=== PATIENT | female | born 1990 | race Caucasian/White ===

== ENCOUNTER 2016-06-22 17:30 | Observation (INO) | payer OTHER ==
[~2016-06-22] VITALS: Ht 152.4 cm; Wt 53.7 kg
[2016-06-22 17:33] VITALS: BP 143/80; PULSE 58; RESP 16; O2SAT 96
[2016-06-22] MEDS ORDERED: 0.9% Sodium Chloride 1,000 ML IV ONE (17:59)
[2016-06-22] MEDS ORDERED: Dexamethasone 10 mg/mL Inj IVPUSH ONE (18:00)
[2016-06-22] MEDS ORDERED: MetoCLOpramide 5 mg/mL 2 mL Inj IVPUSH ONE (18:00)
[2016-06-22] MEDS ORDERED: Magnesium Sulf 2 Gm/50mL Water 2 GM in IV Premix 1 EACH IV ONE (18:00)
--- NOTE | 2016-06-22 18:04 | ED.REPORT ---
HPI-Headache Date of Service June 22, 2016 ED Provider: Hong Austin PA-C Sandhya is a 25-year-old female with a chief complaint of headache. She reports a headache that began insidiously 2 weeks ago. For the first week Excedrin Migraine was quite helpful, but no longer is. Describes her headache as a band around her eyes progressing the back of her head, down her neck and into her jaw. Complains of jaw pain aggravated by eating. Describes her pain is constant. Subjective fever this morning. Associated with nausea, vomiting, photophobia, blurred vision. Seen at urgent care yesterday and provided medications that were initially quite helpful. However she awoke from sleep at 0300 this morning with return of her severe headache. She had been instructed to present to the emergency department should her headache return. She denies history of headaches or other medical conditions. Nursing Notes Stated Complaint: HEADACHE Chief Complaint: Headache Nursing Notes Reviewed: Yes Allergies: Coded Allergies: No Known Allergies (Unverified , 06/22/16) Scheduled PRN Ibuprofen (Ibuprofen) 200 Mg Capsule 200 MG PO DIRECTED PRN PRN Headache General Time Seen by MD: 17:46 Chief Complaint Headache Hx Obtained From: Patient Arrived By: Walk-in Sudden in Onset?: No Onset Occurred: More than a week ago... (2 weeks) Symptom Duration: Since onset Location: : Generalized Quality: Painful Radiation: : Neck, posterior Severity: Current: Severe Severity: Maximum: Severe Recent Healthcare: Recent doctor visit Similar Sx Previous: No Past Medical History Past Medical History Denies. No history of headache Past Surgical History none reported Smoking History Unknown if Ever Smoker Ambulatory Status Independent Review of Systems General: Denies fever, chills, malaise. HEENT: Admits headache. Respiratory: Denies dyspnea, cough, shortness of breath, wheezing. Gastrointestinal: Denies vomiting, diarrhea, abdominal pain. Otherwise as noted in HPI. Complete sys rev & neg: except as marked. Physical Exam General: Tired appearing, well developed, well nourished, mild distress. Tearful. Head: Mild tenderness over bilateral temples. Pulses present 2+. Atraumatic, normocephalic. No mastoid tenderness. Eyes: No scleral icterus or injection. No discharge. PERRL. Vision grossly intact. Ears: Pinna and tragus nontender with manipulation. External auditory canal patent, atraumatic and without discharge. Tympanic membrane goodson, shiny and translucent without fluid, bulging, retraction or perforation. Hearing grossly intact. Nose: Symmetrical, nares patent without discharge. No frontal or maxillary sinus tenderness. Mouth/pharynx: normal dentition, mucus membranes moist. Tonsils 2+ and symmetrical, uvula midline. Pharynx noninjected, no cobblestoning or discharge. Voice clear. Neck: No tenderness or lymphadenopathy. Trachea midline. Excellent range of motion. Respiratory: Regular rate and rhythm. Breath sounds present, clear to auscultation and equal bilaterally. No respiratory distress. No increased work of breathing, speaks in complete sentences. Cardiovascular: Regular rate and rhythm, without murmur, gallop or rub. No pedal edema. Gastrointestinal: Abdomen flat and non-tender without guarding or rebound. Bowel sounds normoactive. Skin: Warm and dry. Neurological: Normal gait, heel walk, toe walk, Romberg. Negative pronator drift. Normal finger-nose, heel-beebe, rapid hand. Moving all limbs normally. Cranial nerves: Vision grossly intact, PERRL, EOMI. Facial motion symmetrical, sensation to light touch over forehead, maxilla and mandible present and equal B /L. Voice clear and fluent, no drooling/pooling of saliva, uvula rises midline. Psychological: Alert and oriented x3. Speech appropriate, linear and logical. Behavior appropriate. Initial Vital Signs Vital Signs (First) Date Time Temp Pulse Resp B/P Pulse Ox O2 Delivery O2 Flow Rate FiO2 06/22/16 17:33 37.1 58 16 143/80 96 Room Air Initial VS: Reviewed, Vital signs abnormal (mildly elevated blood pressure) Interpretation & Diagnostics Interpretation & Diagnostics: CBC is normal, ESR normal at 2. CMP reveals mildly low potassium at 3.3, low creatinine of 0.49 Lab Results Interpretation Result Diagram: 06/22/16 18206/22/16 182 Test 06/22/16 18:25 06/22/16 19:30 06/23/16 00:00 White Blood Count 8.7th/mm3 (3.8-10.1) Red Blood Count 4.18mil/mm3 (3.90-5.20) Hemoglobin 12.7g/dL (12.0-15.6) Hematocrit 37.4% (35.0-46.0) Mean Corpuscular Volume 89.5fL (81-100) Mean Corpuscular Hemoglobin 30.4pg (27.0-35.0) Mean Corpuscular Hemoglobin Concent 34.0% (32.0-37.0) Red Cell Distribution Width 12.5% (12.3-15.4) Platelet Count 243bil/L (150-400) Neutrophils (%) (Auto) 58.8% (40-74) Lymphocytes (%) (Auto) 31.0% (14-46) Monocytes (%) (Auto) 9.6% (4-12) Eosinophils (%) (Auto) 0.2% (0-5) Basophils (%) (Auto) 0.3% (0-3) Erythrocyte Sedimentation Rate 2mm/hr (0-32) Hold Purple Top Tube Received (Received) Hold Blue Top Tube Received (Received) Sodium Level 135mEq/L (134-144) Potassium Level 3.3mEq/L (3.5-5.2) Chloride Level 100mEq/L (97-108) Carbon Dioxide Level 18mmol/L (18-29) Blood Urea Nitrogen 8mg/dL (6-20) Creatinine 0.49mg/dL (0.57-1.00) Estimat Glomerular Filtration Rate 224mL/min (>59) Glucose Level 93mg/dL (60-99) Calcium Level 9.6mg/dL (8.5-10.1) Total Bilirubin 0.4mg/dL (0.0-1.2) Aspartate Amino Transf (AST/SGOT) 15U/L (0-50) Alanine Aminotransferase (ALT/SGPT) 11U/L (0-32) Alkaline Phosphatase 42U/L (25-150) Total Protein 7.1g/dL (6.4-8.4) Albumin 4.6g/dL (3.4-5.0) Hold [place] Top Tube Received (Received) Hold Urine Received (Received) CSF Appearance Clear (CLEAR) CSF Color Colorless (COLORLESS) CSF WBC 0/mm3 (0-5) CSF RBC 0/mm3 CSF Mononuclear WBCs % CSF Polynuclear WBCs % CSF Other Cells CSF Glucose 71mg/dL (45-90) CSF Total Protein 24mg/dL (15-45) CT Head Interpretation PROCEDURE: CT BRAIN WITHOUT CONTRAST ([id number]) INDICATIONS: headache IMPRESSION: No acute intracranial process Interpretation / Wet Read by: Interpret - Radiologist, Interp - [facility] Procedures Lumbar Puncture Text / Dict Note: Clear CSF Opening pressure = 20 Time: 23:38 Procedure Performed by: ED physician Consent / Setup / Site Prep: Informed consent provided, Consent from patient , Hand hygiene observed, Patient right lateral Skin Preparation Agent: Betadine Local Anesthesia: Lidocaine 1% Procedural Sedation/Analgesia: Analgesia: Fentanyl LP Needle Gauge: 22 Inserted Needle at: L3 L4 Post-Procedure / Complications: No complications, Tolerated procedure well, Patient stable Re-Eval/Medical Decision Re-Evaluation/Progress : Time of Eval: 20:21 Re-Evaluation/Progress Note: Patient reports that her pain which had initially been 9 out of 10 was reduced to 3 out of 10 with treatment. Unfortunately it has not risen again to approximate 5 or 6 out of 10. She locates her pain at her temples and states is not yet a band encircling her head. Consultation #1: Referral / Consult Name: Danilo Morgan MD Consulted With: Neurology Call Returned at: 00:06 [employer] Manager: Will see patient, Agrees with eval, Agrees with plan Note: Dr. Morgan requests the pt be admitted. Consultation #2: Referral / Consult Name: Jonh Bridges MD Consulted With: Hospitalist Call Returned at: 00:31 [employer] Manager: Will see patient, Agrees with eval, Agrees with plan, Accepts admit Counseled Regarding: Diagnosis, Lab results, Need for admission Discharge & Departure Shift Change Sign-Out Patient Care Transferred: Yes (Dr. El) Discussed Complaint(s): Yes Laboratory Evaluation: Lab evaluation discussed Imaging Studies: Imaging discussed Impression: Primary Impression: Intractable headache Headache type: unspecified Headache chronicity pattern: unspecified pattern Qualified Code: R51 - Headache Disposition: ADMITTED TO HOSPITAL Discharge Condition All VS Reviewed: Yes Referrals: [facility] Carlynibe Attestation Portions of this note were transcribed by Tamie Oden. I, , personally performed the history, physical exam and medical decision-making;I reviewed and confirmed the accuracy of the information in the transcribed note. Signed by Jamie Oakes. 06/23/16 0111 copies to: [facility] Hong Austin PA-C June 22, 2016 18:03 Tamie Oden June 22, 2016 23:44 Xu El MD June 23, 2016 03:38
[2016-06-22 18:59] LABS: BASOPHILS % (AUTO) 0.3 % (0-3); EOSINOPHILS % (AUTO) 0.2 % (0-5); MONOCYTES % (AUTO) 9.6 % (4-12); Mean Corpuscular Hemoglobin 30.4 pg (27.0-35.0); Mean Corpuscular Volume 89.5 fL (81-100); NEUTROPHILS % (AUTO) 58.8 % (40-74); Platelet Count 243 bil/L (150-400)
[2016-06-22 20:07] VITALS: BP 138/76; PULSE 64; RESP 16; O2SAT 98
--- NOTE | 2016-06-22 20:30 | DRSVH ---
PROCEDURE: CT BRAIN WITHOUT CONTRAST ([id number]) INDICATIONS: headache TECHNIQUE: Noncontrast 4.5 mm thick angled axial sections acquired from the foramen magnum to the vertex, with c oronal reformats. COMPARISON: None. FINDINGS: Image quality: Excellent. CSF spaces: Basal cisterns are patent. No extra-axial fluid collections. Ventricles are normal in size and shape. Brain: No midline shift. No intracranial masses or hemorrhage. Bran-white matter interface is norm al. Skull and face: Calvarium and visualized facial bones are intact, without suspicious lesions. Sinuses: Visualized sinuses and mastoids are clear. IMPRESSION: No acute intracranial process Dictated by: Dipak Patel M.D. on 06/22/2016 at 20:27 Approved by: Dipak Patel M.D. on 06/22/2016 at 20:28
[2016-06-22] MEDS ORDERED: fentaNYL-PF 50 mCg/mL 2 mL Inj IVPUSH ONE (23:20)
[2016-06-22] MEDS ORDERED: Ondansetron 2 mg/mL 2 mL Inj IVPUSH ONE (23:20)
[2016-06-23] VITALS (7 sets, daily range): BP systolic 101–151; BP diastolic 47–84; PULSE 57–80; RESP 16–18; O2SAT 96–99
[2016-06-23] MEDS ORDERED: ProchlorPERazine 5 mg/mL 2 mL Inj IVPUSH ONE ×2 (00:05→22:50)
[2016-06-23 00:43] LABS: APPEARANCE,CSF CLEAR (CLEAR); COLOR,CSF COLORLESS (COLORLESS); WHITE BLOOD CELL,CSF 0 /mm3 (0-5)
[2016-06-23] MEDS ORDERED: Polyethylene Glycol (PEG) 17 Gm Powder PO PRN (00:50)
[2016-06-23] MEDS ORDERED: Alum-Mag Hydrox-Simeth 30 mL Suspension PO PRN (00:50)
[2016-06-23] MEDS ORDERED: Ondansetron 2 mg/mL 2 mL Inj IVPUSH PRN (00:50)
--- NOTE | 2016-06-23 00:58 | PCM.HPMED ---
Subjective Date of Service June 23, 2016 Primary Provider: Admitting Physician: Jonh Bridges MD Primary Care Physician: Alyssa Attending Physician: Jonh Bridges MD Chief Complaint: Headache for 2 weeks History of Present Illness: Sandhya Goff is an otherwise healthy 25 year old woman who presents with a 2 week history of gradually worsening retro-orbital and circumferential headache. She is unable to identify any inciting events such as changes in stress, diet, or activity. She denies any auditory or visual phenomena, pain with ROM of her neck, fevers/chills, alterations in sensation or speech, sick contacts, institutionalization, or history of similar events. She endorses nausea, photophobia, and fatigue. In the ED a lumbar puncture was performed the results of which were largely benign. The patient respond well but transiently to Benadryl, compazine, and decadron with Benadryl being the most efficacious. Dr. Morgan from neurology was consulted and agreed to see the patient tomorrow. Review of Systems: Comprehensive ROS negative except as listed above in the HPI Allergies Coded Allergies: No Known Allergies (Unverified , 06/22/16) Home Medications None PMH none Surgical History tonsillectomy Family History Mother with HTN and "Heart issues" Social History Smoking Status: Unknown if Ever Smoker Exam Vital Signs Vital Sign - Last Date Time Temp Pulse Resp B/P Pulse Ox O2 Delivery O2 Flow Rate FiO2 06/22/16 20:07 37.0 64 16 138/76 98 Room Air Intake and Output 06/22/16 06/22/16 06/23/16 Cumulative From/Thru 15:00 23:00 07:00 06/22/16 17:33 - 06/22/16 18:52 Intake Total 1000 ml 1000 ml Balance 1000 ml 1000 ml Intake IV Total 1000 ml 1000 ml Exam Gen: A/O x3 pleasant cooperative young woman in mild acute distress Neck: Supple, Full ROM, no JVD, no nuchal rigidity HEENT: BL vicky-orbital dark circles, PERRL, EOMI, no scleral icterus, no conjunctival pallor CV: RRR, no murmurs rubs or gallops Resp: Lungs CTA BL, no wheezing rales or rhonchi Abd: Soft, non tender, no organomegaly Extr: No clubbing cyanosis or edema Neuro: CN 2-12 intact, no focal neurologic deficit. Strength and sensation equal and intact BL Psych: Fatigued but generally pleasant mood and affect. Lab and Diagnostics Labs Item Value Date Time Red Blood Count 4.18 mil/mm3 06/22/16 182 Neutrophils (%) (Auto) 58.8 % 06/22/16 182 Lymphocytes (%) (Auto) 31.0 % 06/22/16 182 Monocytes (%) (Auto) 9.6 % 06/22/161824 Eosinophils (%) (Auto) 0.2 % 06/22/16 182 Basophils (%) (Auto) 0.3 % 06/22/161824 Erythrocyte Sedimentation Rate 2 mm/hr 06/22/161824 Estimat Glomerular Filtration Rate 224 mL/min 06/22/161824 Calcium Level 9.6 mg/dL 06/22/161824 Total Bilirubin 0.4 mg/dL 06/22/161824 Aspartate Amino Transf (AST/SGOT) 15 U/L 06/22/16 182 Alanine Aminotransferase (ALT/SGPT) 11 U/L 06/22/161824 Alkaline Phosphatase 42 U/L 06/22/16 182 Total Protein 7.1 g/dL 06/22/16 1825 Albumin 4.6 g/dL 06/22/161824 CSF Appearance Clear 06/23/16 0000 CSF Color Colorless 06/23/16 0000 CSF WBC 0 /mm3 06/23/16 0000 CSF RBC 0 /mm3 06/23/16 0000 CSF Mononuclear WBCs % 06/23/16 0000 CSF Glucose 71 mg/dL 06/23/16 0000 CSF Total Protein 24 mg/dL 06/23/16 0000 Result Diagram: 06/22/16 1825 06/22/161824 X-Rays, CTs and MRIs CT BRAIN WITHOUT CONTRAST IMPRESSION: No acute intracranial process Dictated by: Dipak Patel M.D. on 06/22/2016 at 20:27 Approved by: Dipak Patel M.D. on 06/22/2016 at 20:28 . Assessment & Plan Sandhya Goff is a 25 year otherwise healthy woman who presents with an insidious onset 2 week history of headache localized retro-orbitally with radiation circumferentially around the head and extending down the posterior lateral neck along the line of the levator scapulae. Spinal tap, imaging, and laboratory evaluation are all benign. The patient's case was discussed with Dr. Morgan from Neurology who has agreed to see the patient tomorrow and has requested admission tonight to facilitate that meeting. 1. Prolonged headache, present on admission, acute. Active -Circumferential nature of headache suggestive of tension type, severity and duration with accompanying photophobia more suggestive of migraine. there is retro-orbital pain but it is BL, thus cluster GERARDO less likely -Headache for 2 weeks, initially responsive to excedrine Migraine but for the past 3 days this has not worked -CSF evaluation, imaging, and lab evaluation benign -Headache responsive to Benadryl, compazine, and Decadron; with Benadryl being the most effective agent -Continue Benadryl 25 mg IV Q4 PRN for headache control and sleep aid -Patient will be evaluated by Dr. Morgan tomorrow -Keep overnight interruptions to minimum to allow patient to rest until being seen tomorrow -Patient low risk for DVT, thus SCDs were not utilized in order to facilitate sleep Code Status: FULL CODE Disposition: Observation, patient will likely be able to DC home with no needs tomorrow following neurology evaluation Pain Evaluation: Adequate Pain Control VTE Prophylaxis: Other (Low risk and likely short stay, SCDs would impair sleep ) Resuscitation Status: CPR: Attempt Resuscitation Attending Statement The patient was seen and examined together with Dr. Huitron on 06/23 and I agree with the history, exam and plan as outlined in the note above. Jasiel Huitron DO June 23, 2016 00:58 Jonh Bridges MD June 23, 2016 03:09
--- NOTE | 2016-06-23 01:20 | NUR ---
Admit ER report taken from Odilia BUSTOS arrived floor via [facility] ind , dx intractable GERARDO currently w/out pain, admission complete plan is neuro consult today otherwise no medical hx other than tonsil and 2 children
[2016-06-23] MEDS ORDERED: IBUP200C PO (01:34)
[2016-06-23] MEDS ORDERED: KCl 40 mEq/D5W 500 mL 40 MEQ in IV Premix 1 EACH IV ONE (07:35)
--- NOTE | 2016-06-23 08:23 | NUR ---
Social Work: Screening Data: Pt is a 25 y/o female admitted for intractable headache. Pt's PCP is not listed. Pt's insurance is [facility]. EMR reviewed, readmit score not listed. No d/c planning needs anticipated at this time. PROFESSOR OF SPORT MANAGEMENT will continue to follow if needs arise. Assessment: Pt who is independent at baseline. Plan: Pt will d/c home via POV when medically stable. No d/c planning needs anticipated at this time. PROFESSOR OF SPORT MANAGEMENT will continue to follow if needs arise. WAYNE Vazquez
--- NOTE | 2016-06-23 13:50 | DRSVH ---
PROCEDURE: MRI STROKE PROTOCOL ([id number]) Pre- and post-contrast brain MRI, non-contrast brain MR angiogram, pre- and postcontrast neck MR freya ogram INDICATIONS: New onset headache neurologic symptoms TECHNIQUE: Brain: Noncontrast axial T1 spin echo, axial T2 fast spin echo, sagittal and axial FLAIR, coronal T2 fast spin echo, axial gradient echo, axial diffusion and ADC through the brain. After the administr ation of contrast, axial 3D VIBE of the cranial vasculature and brain. Brain MRA: Non-contrast 3-D time of flight MR angiogram, with multiple ulhkizq-melmzaygw-qohzuvuvvj (MIP) reformats performed. Neck MRA: Axial and sagittal TruFISP through the neck. Coronal dynamic MR angiogram during administ ration of contrast in the arterial and venous phases, with 3-dimenstional anvxpfc-jjpfcvtyf-jmndnmvep n (MIP) reformats constructed from subtraction images. COMPARISON: [facility], CT, CT BRAIN WO CON, 06/22/2016, 20:01. FINDINGS: Image quality: Excellent. BRAIN: CSF spaces: Ventricles are normal in size and shape. Basal cisterns are patent. No extra-axial flu id collections. Brain: No intracranial bleeds or mass effects. Bran-white matter interface is normal. Diffusion we ighted images show no acute ischemic insults. Brainstem appears normal. Visualized portions of the c ervical cord demonstrate a low flow signal intensity focus within the central substance of the cord e xtending from the level of the C4-C5 disc space level inferiorly below the imaged plane. Normal intra vascular flow voids are present. No abnormal intracranial enhancement. Skull and face: Calvarial marrow signal is normal. Orbits appear normal. Sinuses: Sinuses and mastoids are clear. BRAIN MR ANGIOGRAM: Anterior circulation: Intracranial internal carotid arteries are normal in size and enhancement. Th e flow within the paired anterior cerebral arteries is normal and symmetric. The flow within the mid dle cerebral arteries is normal and symmetric. The anterior communicating artery is seen. No stenos es, occlusions, or aneurysms. Posterior circulation: The visualized portions of the vertebral arteries demonstrate normal caliber, and join to form a normal appearing basilar artery. origin of the right posterior cerebral ar teries. The flow within the posterior cerebral arteries is normal and symmetric. No stenoses, occlus ions, or aneurysms. NECK MR ANGIOGRAM: Carotids: Great vessels demonstrate a conventional anatomy as they arise from the aortic arch. The origins of the common carotid arteries appear patent. The calibers and courses of both common caroti d arteries are normal. The bifurcation regions appear normal bilaterally. The internal carotid claudine tobi demonstrate normal course and caliber. Posterior circulation: The origins of the vertebral arteries appear patent. More superior portions of both vertebral arteries demonstrate normal course and caliber, and join to form a normal appearing basilar artery. Miscellaneous: Subclavian arteries appear patent. Precontrast T2 sequences through the neck demonstr ate any high T2 intensity focus within the central substance of the cord extending from the C4-C5 dis c space level inferiorly through the C7-T1 disc space level, measuring roughly 9 mm transverse by 6 m m anteroposterior by 42 mm craniocaudal. IMPRESSION: BRAIN MRI: 1. No acute process. No recent infarct. BRAIN MR ANGIOGRAM: Negative cerebral MR angiography. NECK MR ANGIOGRAM: 1. No internal carotid artery stenosis bilaterally. 2. 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 Further assessment utilizing cervica l spine MRI with and without intravenous contrast is recommended for further assessment, and to exclu de less likely, more aggressive etiologies.. The estimate of stenosis included in the report of the imaging study was calculated using the NASCET method Dictated by: Osmar Talamantes M.D. on 06/23/2016 at 13:42 Approved by: Osmar Talamantes M.D. on 06/23/2016 at 13:49
[2016-06-23] MEDS ORDERED: Butalbital-Acet-Caffeine Tablet PO PRN (16:55)
--- NOTE | 2016-06-23 17:37 | PCM.PROC ---
Procedure Note Date of Service: June 23, 2016 Procedure: Procedure: Osteopathic Manipulative Treatment Subjective: Patient is a 25-year-old female who complains of a three-day headache and right leg pain with numbness and tingling. The patient states that lying down with her knees up helps to improve the lower extremity pain and numbness and tingling. The patient states that Benadryl did seem to help her headache however her headache has returned and is now an 8/10 pain. Risks and benefits of OMT were explained to the patient and verbal consent obtained. Osteopathic Structural Exam: Head: SBS: Right sidebending with an underlying right torsion, OAFSrRl Cervicals: C6-C7 FRSr, C3-5 FRSl Thoracics: T1-4NRrSl, T12 paraspinal hypertonicity on the right Lumbars: L1 to L5 paraspinal hypertonicity on the right Abdomen: Right-sided diaphragm restriction Ribs: Inhaled first rib on the right Pelvis: Anterior right innominate Sacrum: Right SI joint compression Upper extremities: Right clavicle restriction, right let us start Cipro tonicity , right trapezius hypertonicity Lower extremities: Psoas hypertonicity on the right with a psoas trigger point Patient responded well to treatment. Patient stated that her lower extremity pain has subsided and she was no longer having numbness and tingling in the right lower extremity. Patient stated that she still had a headache but it had decreased to about a 5-6/10. The patient's headache is secondary to migraine which is currently being worked up in the hospital and her right lower extremity pain was secondary to psoas spasm as the patient has been chronically in the position secondary to headache pain for the last 3 days. Osteopathic treatment modalities used: Myofascial release, Muscle Energy, Cranial, HVLA, BLT, and soft tissue technique Mayuri Stephens DO June 23, 2016 17:37
[2016-06-23] MEDS: Ketorolac 15 mg/mL Inj IVPUSH PRN ×2 (17:52→23:50)
--- NOTE | 2016-06-23 17:58 | NUR ---
headache patient has been c/o headache throughout day. rating anywhere from a 3-8/10. GERARDO became worse this afternoon with associated low back pain with tingling that radiates to right hip and leg. Dr Stephens notified and she came and assessed patient. Toradol IV was given at 1750hrs. Will reassess for effectiveness. continue to monitor.
[2016-06-23] MEDS ORDERED: Magnesium Sulf 2 Gm/50mL Water 2 GM in IV Premix 1 EACH IV ONE (20:10)
--- NOTE | 2016-06-23 20:41 | NUR ---
MRI off floor to MRI w/contrast Addendum: 06/23/16 at 2136 by YANA HERNANDEZ RN Returned s/p MRI
[2016-06-23] MEDS ORDERED: Valproate Sodium Inj 1,000 MG in Dextrose 5% 100 ML IV ONE (20:45)
--- NOTE | 2016-06-23 22:15 | DRSVH ---
PROCEDURE: MRI CERVICAL SPINE WITH AND WITHOUT CONTRAST ([id number]) INDICATIONS: EVALUATE SYRINX SEEN ON PRIOR MRI TECHNIQUE: Noncontrast sagittal T1 spin echo and T2 fast spin echo, sagittal STIR, foraminal oblique sagittal T2 fast spin echo, axial gradient echo or T2 fast spin echo through the cervical spine. After the admi nistration of contrast, axial and sagittal T1 spin echo with fat saturation through the cervical spin e. COMPARISON: [facility], CT, CT BRAIN WO CON, 06/22/2016, 20:01. [facility], MR, MR STROKE PROTOCOL, 06/23/2016, 12:50. FINDINGS: Image quality: Excellent. Alignment and curvature: There is normal bony alignment. Marrow: Marrow is normal in overall signal, without suspicious enhancement. Spinal cord: Visualized spinal cord has normal size and signal except for the previously identified central fluid collection presumed to represent syrinx within the mid to lower cervical spine from erica roximately C4-5 through C6-7 disc levels. This structure was seen initially during brain imaging ear lier today, and has a maximal craniocaudad length of approximately 4.2-4.3 cm with maximal AP and tra nsverse dimensions of approximately 6 x 9-10 mm. This is centrally located within the cord, and appe ars bilobed with a smaller upper segment and a longer immediately contiguous lower segment tapering a t the upper and lower margins. This produces slight fusiform enlargement of the cord through that ar ea, only by approximately 2 mm in each axial dimension at the most. 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 No cerebellar tonsillar herniation. No abnormal intramedullary enhancement. Paraspinous soft tissues: No paravertebral masses or suspicious enhancement. IMPRESSION: Central syrinx over approximately a 4.3 cm in maximal craniocaudad dimension is present extending from the C4-5 disc level through the C6-7 disc level of the middle and lower thirds of the cervical cord. No associated contrast enhancement is present at the margins of this lesion, exactly centrally positioned, without evidence of prior trauma to the corresponding levels of the cervical sp ine. This is most likely a benign syrinx, but occasionally low grade cystic glioma or other cystic neoplas m of the central cord could produce such an appearance. Therefore followup would appear necessary an d neurosurgical consultation likely is also warranted for further assessment and to assist in establi shing sequence and frequency of followup MR scanning. No additional focal lesion along the cervical or visualized upper thoracic cord is seen. 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 Depending on the clinica l status further thoracic spine and lumbosacral spine MR imaging may be warranted in this circumstanc e. Dictated by: Rsusell Cotton M.D. on 06/23/2016 at 22:03 Approved by: Russell Cotton M.D. on 06/23/2016 at 22:13
--- NOTE | 2016-06-23 23:28 | NUR ---
GERARDO s/p MRI GERARDO worsening even after Cresencio cintron MD obtained order for GERARDO cocktail
[2016-06-24 06:05] VITALS: BP 114/49; PULSE 73; RESP 17; O2SAT 97
[2016-06-24] MEDS: Ketorolac 15 mg/mL Inj IVPUSH PRN ×2 (06:10→12:55)
--- NOTE | 2016-06-24 11:05 | DRSVH ---
PROCEDURE: MRI LUMBAR SPINE WITH AND WITHOUT CONTRAST ([id number]) INDICATIONS: Recommended followup,cervical syrinx TECHNIQUE: Noncontrast sagittal T1 spin echo and T2 fast spin echo, sagittal STIR, axial T1 and T2 fast spin ech o through the lumbar spine. In cases with scoliosis, additional coronal T2 fast spin echo may be per formed. After the administration of contrast, sagittal and axial T1 spin echo with fat saturation th rough the lumbar spine. COMPARISON: None. FINDINGS: Image quality: Diagnostic Spinal Cord: The imaged portions of the spinal cord are normal in size and signal. The conus medulla ris is normal in position. No syrinx of the imaged portion of the distal cord is evident. The conus medullaris terminates at the lower end of T12. Paraspinous Soft Tissues: No paravertebral masses. Image soft tissues of the abdomen and pelvis are grossly unremarkable; however, not adequately evaluated on this exam. The abdominal aorta is normal in course and caliber. Incidental note is made of a T2 hyperintense structure involving the posteri or aspect of the upper to mid left kidney measuring 1.4 cm in diameter (image 34, series 5) which sandy s not demonstrate significant enhancement and may represent a small cyst. However, there is a flow-v oid identified extending very close to the cortical surface within this region (image 35, series 5), which could represent a vascular anomaly. This is not adequately characterized on this study. Bones: The vertebral body heights and marrow signal are within normal limits. There is no acute frac ture or dislocation. Lower thoracic levels: No significant degenerative changes of the included lower thoracic levels are present. There is no central canal or neural foraminal narrowing at these levels. L1-L2: There is no significant disc bulge or facet arthropathy. There is no central canal or neural foraminal stenosis. L2-L3: There is no significant disc bulge or facet arthropathy. There is no central canal or neural foraminal stenosis. L3-L4: There is no significant disc bulge or facet arthropathy. There is no central canal or neural foraminal stenosis. L4-L5: There is no significant disc bulge or facet arthropathy. There is no central canal or neural foraminal stenosis. L5-S1: There is no significant disc bulge or facet arthropathy. There is no central canal or neural foraminal stenosis. IMPRESSION: 1. Unremarkable lumbar spine. No significant degenerative changes are evident. The imaged portions of the lower spinal cord are within normal limits. 2. Left renal lesion may represent a cyst, but is not well evaluated. A three-phase (noncontrast, a rterial phase, and delayed imaging) CT or MRI of the abdomen is recommended for further evaluation. Dictated by: Russ Juarez M.D. on 06/24/2016 at 9:55 Approved by: Russ Juarez M.D. on 06/24/2016 at 10:03
--- NOTE | 2016-06-24 11:13 | DRSVH ---
PROCEDURE: MRI THORACIC SPINE WITH AND WITHOUT CONTRAST ([id number]) INDICATIONS: Recommended followup,cervical syrinx TECHNIQUE: Noncontrast sagittal T1 spin echo and T2 fast spin echo, sagittal STIR, axial T1 and T2 fast spin ech o through the thoracic spine. After the administration of contrast, axial and sagittal T1 spin echo with fat saturation through the thoracic spine. COMPARISON: None. FINDINGS: Image quality: Excellent. Spinal cord: A prominent lower cervical syrinx is evident, better appreciated on the dedicated MRI of the cervical spine dated 06/23/16. Mild prominence of the central canal is seen within the thoracic c ord without otto syrinx formation. No suspicious enhancement of the spinal cord is evident. No foc al lesions are identified. Bones: The vertebral body heights and intrinsic marrow signal are within normal limits without evide nce to suggest an acute fracture. The alignment is within normal limits. There are no significant d egenerative changes of the thoracic spine. No focal disc bulges, protrusions, or extrusions are iden tified. There is no central canal or neural foraminal narrowing. No suspicious osseous enhancement is evident. Paraspinous soft tissues: No paravertebral masses or abnormal enhancement. IMPRESSION: 1. Mild prominence of the central canal of the thoracic cord without otto thoracic syrinx. No susp icious enhancement of the cord is evident. 2. No disc bulges, protrusions, or extrusions of the thoracic spine are evident. Dictated by: Russ Juarez M.D. on 06/24/2016 at 10:04 Approved by: Russ Juarez M.D. on 06/24/2016 at 10:12
[2016-06-24 14:00] VITALS: BP 118/73; PULSE 69; RESP 20; O2SAT 100
[2016-06-24] MEDS ORDERED: HYDR25CA PO (17:22)
[2016-06-24] MEDS ORDERED: SUMA50TA31 PO (17:22)
[2016-06-24] MEDS ORDERED: ACET325T51 PO (17:22)
--- NOTE | 2016-06-24 17:27 | PCM.DC.MED ---
Discharge Summary Date of Service June 24, 2016 Dates of Hospitalization Date of Hospital Admission June 23, 2016 at 00:49 Date of Discharge: June 24, 2016 Providers: Admitting Physician: Jonh Bridges MD Primary Care Physician: Nopclemente Attending Physician: Jonh Bridges MD Diagnosis at Time of Discharge Diagnosis at Time of Discharge Migraine New finding of a syrinx on MRI Consultations Neurology (Dr. Banks) Procedures XRay, CTs & MRIs CT BRAIN WITHOUT CONTRAST IMPRESSION: No acute intracranial process Dictated by: Dipak Patel M.D. on 06/22/2016 at 20:27 Approved by: Dipak Patel M.D. on 06/22/2016 at 20:28 . PROCEDURE: MRI STROKE PROTOCOL ([id number]) Pre- and post-contrast brain MRI, non-contrast brain MR angiogram, pre- and postcontrast neck MR angiogram INDICATIONS: New onset headache neurologic symptoms TECHNIQUE: Brain: Noncontrast axial T1 spin echo, axial T2 fast spin echo, sagittal and axial FLAIR, coronal T2 fast spin echo, axial gradient echo, axial diffusion and ADC through the brain. After the administration of contrast, axial 3D VIBE of the cranial vasculature and brain. Brain MRA: Non-contrast 3-D time of flight MR angiogram, with multiple maximum- intensity-projection (MIP) reformats performed. Neck MRA: Axial and sagittal TruFISP through the neck. Coronal dynamic MR angiogram during administration of contrast in the arterial and venous phases, with 3-dimenstional eurqykn-enjufmgty-evmocikcvp (MIP) reformats constructed from subtraction images. COMPARISON: [facility], CT, CT BRAIN WO CON, 06/22/2016, 20:01. FINDINGS: Image quality: Excellent. BRAIN: CSF spaces: Ventricles are normal in size and shape. Basal cisterns are patent. No extra-axial fluid collections. Brain: No intracranial bleeds or mass effects. Bran-white matter interface is normal. Diffusion weighted images show no acute ischemic insults. Brainstem appears normal. Visualized portions of the cervical cord demonstrate a low flow signal intensity focus within the central substance of the cord extending from the level of the C4-C5 disc space level inferiorly below the imaged plane. Normal intravascular flow voids are present. No abnormal intracranial enhancement. Skull and face: Calvarial marrow signal is normal. Orbits appear normal. Sinuses: Sinuses and mastoids are clear. BRAIN MR ANGIOGRAM: Anterior circulation: Intracranial internal carotid arteries are normal in size and enhancement. The flow within the paired anterior cerebral arteries is normal and symmetric. The flow within the middle cerebral arteries is normal and symmetric. The anterior communicating artery is seen. No stenoses, occlusions, or aneurysms. Posterior circulation: The visualized portions of the vertebral arteries demonstrate normal caliber, and join to form a normal appearing basilar artery. origin of the right posterior cerebral arteries. The flow within the posterior cerebral arteries is normal and symmetric. No stenoses, occlusions, or aneurysms. NECK MR ANGIOGRAM: Carotids: Great vessels demonstrate a conventional anatomy as they arise from the aortic arch. The origins of the common carotid arteries appear patent. The calibers and courses of both common carotid arteries are normal. The bifurcation regions appear normal bilaterally. The internal carotid arteries demonstrate normal course and caliber. Posterior circulation: The origins of the vertebral arteries appear patent. More superior portions of both vertebral arteries demonstrate normal course and caliber, and join to form a normal appearing basilar artery. Miscellaneous: Subclavian arteries appear patent. Precontrast T2 sequences through the neck demonstrate any high T2 intensity focus within the central substance of the cord extending from the C4-C5 disc space level inferiorly through the C7-T1 disc space level, measuring roughly 9 mm transverse by 6 mm anteroposterior by 42 mm craniocaudal. IMPRESSION: BRAIN MRI: 1. No acute process. No recent infarct. BRAIN MR ANGIOGRAM: Negative cerebral MR angiography. NECK MR ANGIOGRAM: 1. No internal carotid artery stenosis bilaterally. 2. 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 Further assessment utilizing cervical spine MRI with and without intravenous contrast is recommended for further assessment, and to exclude less likely, more aggressive etiologies.. The estimate of stenosis included in the report of the imaging study was calculated using the NASCET method Dictated by: Osmar Talamantes M.D. on 06/23/2016 at 13:42 Approved by: Osmar Talamantes M.D. on 06/23/2016 at 13:49 PROCEDURE: MRI CERVICAL SPINE WITH AND WITHOUT CONTRAST ([id number]) INDICATIONS: EVALUATE SYRINX SEEN ON PRIOR MRI TECHNIQUE: Noncontrast sagittal T1 spin echo and T2 fast spin echo, sagittal STIR, foraminal oblique sagittal T2 fast spin echo, axial gradient echo or T2 fast spin echo through the cervical spine. After the administration of contrast, axial and sagittal T1 spin echo with fat saturation through the cervical spine. COMPARISON: [facility], CT, CT BRAIN WO CON, 06/22/2016, 20:01. [facility], MR, MR STROKE PROTOCOL, 06/23/2016, 12:50. FINDINGS: Image quality: Excellent. Alignment and curvature: There is normal bony alignment. Marrow: Marrow is normal in overall signal, without suspicious enhancement. Spinal cord: Visualized spinal cord has normal size and signal except for the previously identified central fluid collection presumed to represent syrinx within the mid to lower cervical spine from approximately C4-5 through C6-7 disc levels. This structure was seen initially during brain imaging earlier today, and has a maximal craniocaudad length of approximately 4.2-4.3 cm with maximal AP and transverse dimensions of approximately 6 x 9-10 mm. This is centrally located within the cord, and appears bilobed with a smaller upper segment and a longer immediately contiguous lower segment tapering at the upper and lower margins. This produces slight fusiform enlargement of the cord through that area, only by approximately 2 mm in each axial dimension at the most. 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 No cerebellar tonsillar herniation. No abnormal intramedullary enhancement. Paraspinous soft tissues: No paravertebral masses or suspicious enhancement. IMPRESSION: Central syrinx over approximately a 4.3 cm in maximal craniocaudad dimension is present extending from the C4-5 disc level through the C6-7 disc level of the middle and lower thirds of the cervical cord. No associated contrast enhancement is present at the margins of this lesion, exactly centrally positioned, without evidence of prior trauma to the corresponding levels of the cervical spine. This is most likely a benign syrinx, but occasionally low grade cystic glioma or other cystic neoplasm of the central cord could produce such an appearance. Therefore followup would appear necessary and neurosurgical consultation likely is also warranted for further assessment and to assist in establishing sequence and frequency of followup MR scanning. No additional focal lesion along the cervical or visualized upper thoracic cord is seen. 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 Depending on the clinical status further thoracic spine and lumbosacral spine MR imaging may be warranted in this circumstance. Dictated by: Russell Cotton M.D. on 06/23/2016 at 22:03 Approved by: Russell Cotton M.D. on 06/23/2016 at 22:13 PROCEDURE: MRI THORACIC SPINE WITH AND WITHOUT CONTRAST ([id number]) INDICATIONS: Recommended followup,cervical syrinx TECHNIQUE: Noncontrast sagittal T1 spin echo and T2 fast spin echo, sagittal STIR, axial T1 and T2 fast spin echo through the thoracic spine. After the administration of contrast, axial and sagittal T1 spin echo with fat saturation through the thoracic spine. COMPARISON: None. FINDINGS: Image quality: Excellent. Spinal cord: A prominent lower cervical syrinx is evident, better appreciated on the dedicated MRI of the cervical spine dated 06/23/16. Mild prominence of the central canal is seen within the thoracic cord without otto syrinx formation. No suspicious enhancement of the spinal cord is evident. No focal lesions are identified. Bones: The vertebral body heights and intrinsic marrow signal are within normal limits without evidence to suggest an acute fracture. The alignment is within normal limits. There are no significant degenerative changes of the thoracic spine. No focal disc bulges, protrusions, or extrusions are identified. There is no central canal or neural foraminal narrowing. No suspicious osseous enhancement is evident. Paraspinous soft tissues: No paravertebral masses or abnormal enhancement. IMPRESSION: 1. Mild prominence of the central canal of the thoracic cord without otto thoracic syrinx. No suspicious enhancement of the cord is evident. 2. No disc bulges, protrusions, or extrusions of the thoracic spine are evident. Dictated by: Russ Juarez M.D. on 06/24/2016 at 10:04 Approved by: Russ Juarez M.D. on 06/24/2016 at 10:12 PROCEDURE: MRI LUMBAR SPINE WITH AND WITHOUT CONTRAST ([id number]) INDICATIONS: Recommended followup,cervical syrinx TECHNIQUE: Noncontrast sagittal T1 spin echo and T2 fast spin echo, sagittal STIR, axial T1 and T2 fast spin echo through the lumbar spine. In cases with scoliosis, additional coronal T2 fast spin echo may be performed. After the administration of contrast, sagittal and axial T1 spin echo with fat saturation through the lumbar spine. COMPARISON: None. FINDINGS: Image quality: Diagnostic Spinal Cord: The imaged portions of the spinal cord are normal in size and signal. The conus medullaris is normal in position. No syrinx of the imaged portion of the distal cord is evident. The conus medullaris terminates at the lower end of T12. Paraspinous Soft Tissues: No paravertebral masses. Image soft tissues of the abdomen and pelvis are grossly unremarkable; however, not adequately evaluated on this exam. The abdominal aorta is normal in course and caliber. Incidental note is made of a T2 hyperintense structure involving the posterior aspect of the upper to mid left kidney measuring 1.4 cm in diameter (image 34, series 5) which does not demonstrate significant enhancement and may represent a small cyst. However, there is a flow-void identified extending very close to the cortical surface within this region (image 35, series 5), which could represent a vascular anomaly. This is not adequately characterized on this study. Bones: The vertebral body heights and marrow signal are within normal limits. There is no acute fracture or dislocation. Lower thoracic levels: No significant degenerative changes of the included lower thoracic levels are present. There is no central canal or neural foraminal narrowing at these levels. L1-L2: There is no significant disc bulge or facet arthropathy. There is no central canal or neural foraminal stenosis. L2-L3: There is no significant disc bulge or facet arthropathy. There is no central canal or neural foraminal stenosis. L3-L4: There is no significant disc bulge or facet arthropathy. There is no central canal or neural foraminal stenosis. L4-L5: There is no significant disc bulge or facet arthropathy. There is no central canal or neural foraminal stenosis. L5-S1: There is no significant disc bulge or facet arthropathy. There is no central canal or neural foraminal stenosis. IMPRESSION: 1. Unremarkable lumbar spine. No significant degenerative changes are evident. The imaged portions of the lower spinal cord are within normal limits. 2. Left renal lesion may represent a cyst, but is not well evaluated. A three- phase (noncontrast, arterial phase, and delayed imaging) CT or MRI of the abdomen is recommended for further evaluation. Dictated by: Russ Juarez M.D. on 06/24/2016 at 9:55 Approved by: Russ Juarez M.D. on 06/24/2016 at 10:03 Brief History Sandhya Goff is an otherwise healthy 25 year old woman who presents with a 2 week history of gradually worsening retro-orbital and circumferential headache. She is unable to identify any inciting events such as changes in stress, diet, or activity. She denies any auditory or visual phenomena, pain with ROM of her neck, fevers/chills, alterations in sensation or speech, sick contacts, institutionalization, or history of similar events. She endorses nausea, photophobia, and fatigue. In the ED a lumbar puncture was performed the results of which were largely benign. The patient respond well but transiently to Benadryl, compazine, and decadron with Benadryl being the most efficacious. Dr. Banks from neurology was consulted and agreed to see the patient tomorrow. Hospital Course Patient is a 25-year-old female who presented with insidious onset of headache for the last 2 weeks. The patient presented with a migraine type headache with retro-orbital pain and circumferential. The patient states that it has been present for the last 2 weeks and initially was responsive to Excedrin however had progressively gotten worse. The headache did seem to be mildly responsive to Benadryl, Compazine, and Decadron however the headache tended to spontaneously come back. It was thought that the patient might have a meningitis and a lumbar puncture was performed in the emergency room and found to be negative. At the recommendation of Dr. banks from neurology the patient was admitted. The patient received a dose of Fioricet which did not help however the patient did get a dose of Imitrex which seemed to relieve the patient's pain significantly. Upon admission the patient also underwent an MRI of the brain and was found to have a possible syrinx with follow-up MRI of the cervical, thoracic, and lumbar spine. The patient was found to have a 4.3 cm searing located C4 through C7 and thought to be potentially benign however there was questionable cystic glioma versus cystic neoplasm as well. It was recommended that the patient follow-up with neurosurgery. The patient has an appointment with Dr. Leon on July 01 at 2:30 PM and the patient has been instructed to maintain this appointment. The patient stated that she understood and would follow up. The patient was seen by neurology (Dr. banks) who agrees that the patient should follow up with neurosurgery however does not feel that the patient is a surgical emergency at this time. The patient was discharged home with a prescription for Imitrex, Tylenol, and Vistaril as the patient did receive some relief with the use of Benadryl so there may be a potential allergy component triggering the patient's migraine headaches. The patient is being discharged home in stable condition. Exam Vital Signs (Last) Date Time Temp Pulse Resp B/P Pulse Ox O2 Delivery O2 Flow Rate FiO2 06/24/16 14:00 37.0 69 20 118/73 100 Room Air Exam Physical Exam: GEN: Patient was awake, alert, responding appropriately to questions HEENT: Pupils equal round and reactive to light, extraocular eye muscles intact , Neck soft supple, trachea midline, nomocephalic/atraumatic, positive Spurling' s test with side bending to the right. CV: +S1/S2, regular rate and rhythm, no murmurs auscultated Respiratory: CTAB, no wheezes, rales, rhonchi GI: +bowel sounds x4, soft, compressible, nontender to palpation EXT: no clubbing, cyanosis, edema Neuro: Cranial nerves II-XII grossly intact Psych: mood and affect were appropriate Test 06/22/16 18:25 06/22/16 19:30 06/23/16 00:00 06/24/16 08:00 White Blood Count 8.7th/mm3 (3.8-10.1) Red Blood Count 4.18mil/mm3 (3.90-5.20) Hemoglobin 12.7g/dL (12.0-15.6) Hematocrit 37.4% (35.0-46.0) Mean Corpuscular Volume 89.5fL (81-100) Mean Corpuscular Hemoglobin 30.4pg (27.0-35.0) Mean Corpuscular Hemoglobin Concent 34.0% (32.0-37.0) Red Cell Distribution Width 12.5% (12.3-15.4) Platelet Count 243bil/L (150-400) Neutrophils (%) (Auto) 58.8% (40-74) Lymphocytes (%) (Auto) 31.0% (14-46) Monocytes (%) (Auto) 9.6% (4-12) Eosinophils (%) (Auto) 0.2% (0-5) Basophils (%) (Auto) 0.3% (0-3) Erythrocyte Sedimentation Rate 2mm/hr (0-32) Hold Purple Top Tube Received (Received) Hold Blue Top Tube Received (Received) Total Bilirubin 0.4mg/dL (0.0-1.2) Aspartate Amino Transf (AST/SGOT) 15U/L (0-50) Alanine Aminotransferase (ALT/SGPT) 11U/L (0-32) Alkaline Phosphatase 42U/L (25-150) Total Protein 7.1g/dL (6.4-8.4) Albumin 4.6g/dL (3.4-5.0) Hold Atkinson Top Tube Received (Received) Hold Urine Received (Received) CSF Appearance Clear (CLEAR) CSF Color Colorless (COLORLESS) CSF WBC 0/mm3 (0-5) CSF RBC 0/mm3 CSF Mononuclear WBCs % CSF Polynuclear WBCs % CSF Other Cells CSF Glucose 71mg/dL (45-90) CSF Total Protein 24mg/dL (15-45) Sodium Level 142mEq/L (134-144) Potassium Level 4.2mEq/L (3.5-5.2) Chloride Level 106mEq/L (97-108) Carbon Dioxide Level 20mmol/L (18-29) Blood Urea Nitrogen 10mg/dL (6-20) Creatinine 0.50mg/dL (0.57-1.00) Estimat Glomerular Filtration Rate 219mL/min (>59) Glucose Level 89mg/dL (60-99) Calcium Level 9.1mg/dL (8.5-10.1) Discharge Medications As needed Acetaminophen (Acetaminophen) 325 Mg Tablet 975 MG PO Q8H PRN PRN Headache Prescribed by: CHIRAG SINGH DO Hydroxyzine Pamoate (Vistaril) 25 Mg Capsule 25 MG PO TID PRN PRN Headache Prescribed by: CHIRAG SINGH DO Ibuprofen (Ibuprofen) 200 Mg Capsule 200 MG PO DIRECTED PRN PRN Headache ( Reported) Sumatriptan Succinate (Imitrex) 50 Mg Tablet 50 MG PO Q2H PRN PRN Headache Prescribed by: CHIRAG SINGH DO Additional med instructions Imitrex has been given to you and it should be taken at the first sign of a migraine. This medication can be combined with Tylenol. You have also been given Vistaril which is an antihistamine similar to Benadryl but less drowsy. While taking Benadryl here it seemed to help relieve her headache please try taking the Vistaril for relief as well as some of your migraines could be triggered by allergies. If Vistaril does not work as well as Benadryl he may revert to taking Benadryl once again. Followup Plan Discharge Diet: No restrictions Discharge Activity: No restrictions Patient Instructions Please follow up with Dr. Leon's office in regards to the new findings that were found in your CT scan. It is very important that you keep this appointment and that you are on time. It is July 01 at 2:30 PM phone number Follow-up Provider: Jasiel Leon MD Follow-up with PCP in: 1 week (An appointment has been made for you for 2016 at 2:30 PM please call the office for any further questions or instructions [phone]) Time spent Greater than 45 minutes copies to: Jasiel Leon MD, Precious L DO June 24, 2016 17:27
--- NOTE | 2016-06-24 17:27 | PCM.DIMED ---
Discharge Instructions Date of Service June 24, 2016 Dates of Hospitalization June 23, 2016 at 00:49 Discharge Diagnosis Discharge Diagnosis Migraine New finding of a syrinx on MRI Medication Instructions Imitrex has been given to you and it should be taken at the first sign of a migraine. This medication can be combined with Tylenol. You have also been given Vistaril which is an antihistamine similar to Benadryl but less drowsy. While taking Benadryl here it seemed to help relieve her headache please try taking the Vistaril for relief as well as some of your migraines could be triggered by allergies. If Vistaril does not work as well as Benadryl he may revert to taking Benadryl once again. Diet No restrictions Activity No restrictions Call your provider Fever or Chills, Chest pain, Vomitting, Weakness (unilateral) Patient Instructions Please follow up with Dr. Leon's office in regards to the new findings that were found in your CT scan. It is very important that you keep this appointment and that you are on time. It is July 01 at 2:30 PM phone number [phone] Follow-up Provider: Jasiel Leon MD Follow-up with PCP in: 1 week (An appointment has been made for you for 2016 at 2:30 PM please call the office for any further questions or instructions [phone]) Mayuri Stephens DO June 24, 2016 17:27
--- NOTE | 2016-06-24 17:47 | NUR ---
GERARDO/Discharge Pt took Imitrex and tylenol this afternoon for 10/31 GERARDO, pt states this worked very well. Dr. Stephens notified of efficacy of Imitrex and APAP, she called the Neurology clinic in [place] and set an appointment for outpatient f/u, d/c orders placed. D/C teaching completed, pt denies questions. Pt's fiance to drive home. IV d/c'd in tact. Addendum: 06/24/16 at 1800 by LORI CHANG RN Pt d/c'd home at 1800 with esvin. All belongings sent with pt upon d/c.
== END 2016-06-24 18:00 | disposition home or self-care (01) ==
LOC: SED 17:30 → MOC 06-23 00:49
PROVIDERS: ADMIT Hospitalist; ATTEND Hospitalist
DX: G43.809 Other migraine, not intractable, without status migrainosus (principal); G95.0 Syringomyelia and syringobulbia
CPT/HCPCS: 36415; 62270; 70450; 70549; 70553; 72156; 72157; 72158; 80048; 80053; 81025; 82945; 84155; 85025; 85651; 87070; 87205; 89051; 96365; 96366; 96367; 96372; 96375; 96376; 99285; A9585; G0378; J0780; J1100; J1200; J1885; J2405; J2765; J3010; J3030; J3480; J7030

== ENCOUNTER 2016-08-29 10:28 | Emergency (ER) | payer OTHER ==
[~2016-08-29] VITALS: Ht 152.4 cm; Wt 51.8 kg
[~2016-08-29 10:28] MED LIST: ACET325T51 PO; HYDR25CA PO; IBUP200C PO; SUMA50TA31 PO
--- NOTE | 2016-08-29 10:36 | ED.REPORT ---
HPI-Extremity Problem Lower Date of Service Aug 29, 2016 ED Provider: The patient is a 25 year old female who was brought to the emergency department by EMS for a left knee injury that occurred just prior to arrival. The patient was sitting on the couch when her child landed on her knee and dislocated her patella. She denies any other injuries or trauma. She did not fall or hit her head. Medics administered Ketamine and Fentanyl, and reduced her knee. She had good pulses the entire time. Her pain improved after they reduced her knee. She has not dislocated her patella in the past. At this time she complains of mild left knee pain and nausea. Nursing Notes Stated Complaint: DISLOCATED KNEE Nursing Notes Reviewed: Yes Allergies: Coded Allergies: No Known Allergies (Unverified , 06/22/16) Scheduled Quetiapine Fumarate (Seroquel) 25 Mg Tablet 25 MG PO HS Sertraline HCl (Zoloft) 50 Mg Tablet 50 MG PO DAILY Scheduled PRN Naproxen (Naproxen) 500 Mg Tab 500 MG PO BID PRN PRN For Pain General Time Seen by MD: 10:36 Chief Complaint Knee injury left Hx Obtained From: Patient, EMS Arrived By: Ambulance Onset Occurred: Just prior to arrival Symptom Duration: Since onset Location: : Knee left Quality: Painful Severity: Current: Moderate Severity: Maximum: Severe Pertinent Negative: Pt denies other symptoms Exacerbated by: Movement Relieved by: Immobilization Recent Healthcare: No recent doctor visit, No recent hospitalization Similar Sx Previous: No Past Medical History Past Medical History None Past Surgical History None Family History Noncontributory Smoking History Unknown if Ever Smoker Social History Other Social History: Good social support, , Lives with children, Local resident Ambulatory Status Independent Review of Systems Musculoskeletal: Reports: Joint pain, Joint swelling Neurologic: Denies: Change LOC, Headache, Syncope Complete sys rev & neg: except as marked. GI: Reports: Nausea Physical Exam Initial Vital Signs Vital Signs (First) Date Time Temp Pulse Resp B/P Pulse Ox O2 Delivery O2 Flow Rate FiO2 08/29/16 10:41 36.6 86 16 124/62 99 Room Air Initial VS: Reviewed General/Constitutional: Well-developed, Well-nourished Head / Eyes: Atraumatic, Normocephalic, PERRL ENT: Mucous membranes moist, Conjunctiva normal, No scleral icterus Neck: Supple, Non-tender, Full range of motion Respiratory: Breath sounds normal, Clear to auscultation, No respiratory distress Cardiovascular: Regular rate & rhythm, Heart sounds normal, Intact distal pulses Abdomen / GI: Soft, Non-tender, No guarding, No rebound, No distention Lymphatic: No lymphadenopathy Upper Extremities: Vascular intact, Neuro intact, No swelling, No tenderness Skin: Warm, Dry, No cyanosis Neurologic: Alert, Oriented, Nonfocal Psychiatric: Mood/affect normal, Behavior normal, Normal thought content Lower Extremity / Pelvis / MS: Neurologic intact, Vascular intact Mild left knee swelling. Good passive range of motion. Intact extensor mechanism of the knee. Intact motor and sensory distally. Ankle / Foot: Neurologic intact, Vascular intact Interpretation & Diagnostics X-Ray Interpretation Xray Interpretation: IMPRESSION: 1. No depressed fractures or current dislocation. Dictated by: Aidan Mclaughlin M.D. on 08/29/2016 at 11:08 X-Ray Ordered: Knee left Interpretation / Wet Read by: Interpret - Radiologist Re-Eval/Medical Decision Source of Hx: Old records, EMS Re-Evaluation/Progress : Time of Eval: 11:07 Re-Evaluation/Progress Note: Rechecked the patient. Counseled Regarding: Diagnosis, Need for follow-up, When/why to return to ED Discharge & Departure Impression: Primary Impression: Patellar dislocation Encounter type: initial encounter Laterality: left Qualified Code: S83.005A - Unspecified dislocation of left patella, initial encounter Disposition: Home Discharge Condition All VS Reviewed: Yes Condition: Stable Patient Instructions: Patellar Dislocation (ED) Additional Instructions: Thank you for entrusting us with your care today. Your knee cap was successfully put back in place. Followup with an orthopedist next 1-2 weeks for re-evaluation. We have given you a referral the orthopedist, Dr. Ramirez. Use the knee immobilizer and crutches until you are re-evaluated. Use Naproxen as needed for your pain. You can try applying ice if this helps. Seek care for increased pain, numbness, weakness, or any other new or concerning symptoms. Referrals: [facility] (PCP) Jaden Ramirez MD Scribe Attestation Portions of this note were transcribed by Yaneli Myrick. I, Dr. Leija personally performed the history, physical exam and medical decision-making; I reviewed and confirmed the accuracy of the information in the transcribed note. Signed by: Jamie Becker, 08/29/2016 at 1200. copies to: [facility]; Jaden Ramirez MD, Timothy S DO Aug 29, 2016 10:36 Yaneli Myrick Aug 29, 2016 10:43
[2016-08-29] MEDS ORDERED: Ondansetron 2 mg/mL 2 mL Inj ONE (10:38)
[2016-08-29] MEDS ORDERED: Ondansetron 2 mg/mL 2 mL Inj IVPUSH PRN (10:40)
[2016-08-29 10:41] VITALS: BP 124/62; PULSE 86; RESP 16; O2SAT 99
[2016-08-29] MEDS ORDERED: QUET25TA PO (10:46)
[2016-08-29] MEDS ORDERED: SERT50TA PO (10:46)
--- NOTE | 2016-08-29 11:11 | DRSVH ---
PROCEDURE: X-RAY LEFT KNEE, THREE VIEWS ([id number]) INDICATIONS: patellar dislocation/reduction TECHNIQUE: 3 views of the knee were acquired. COMPARISON: None. FINDINGS: Bones: No depressed fractures or current dislocations. No suspicious bony lesions. Soft tissues: No joint effusion. No suspicious soft tissue calcifications. IMPRESSION: 1. No depressed fractures or current dislocation. Dictated by: Aidan Mclaughlin M.D. on 08/29/2016 at 11:08 Approved by: Aidan Mclaughlin M.D. on 08/29/2016 at 11:10
[2016-08-29] MEDS ORDERED: NPR500T PO (11:24)
[2016-08-29 11:54] VITALS: BP 112/52; PULSE 60; RESP 17; O2SAT 98
== END 2016-08-29 11:55 | disposition home or self-care (01) ==
LOC: EDBD 10:28 → EDUNIT# 10:28 → SED 10:28
DX: S83.005A Unspecified dislocation of left patella, initial encounter (principal); W50.0XXA Accidental hit or strike by another person, initial encounter; Y93.89 Activity, other specified; Y92.018 Other place in single-family (private) house as the place of occurrence of the external cause; Y99.8 Other external cause status; R11.0 Nausea
CPT/HCPCS: 73562; 96374; 99284; J2405